=== PATIENT | female | born 1990 | race Two or more races ===

== ENCOUNTER 2021-04-04 16:30 | Outpatient (CLI) | payer SELFPAY | END 2021-04-04 17:58 | disposition home or self-care (01) | LOC: GENOP 16:30 | DX: O36.8130 Decreased fetal movements, third trimester, not applicable or unspecified (principal); O99.891 Other specified diseases and conditions complicating pregnancy; R10.9 Unspecified abdominal pain; Z91.048 Other nonmedicinal substance allergy status; Z3A.31 31 weeks gestation of pregnancy | CPT/HCPCS: 59025; 81001 ==

== ENCOUNTER 2021-05-22 10:28 | Outpatient (CLI) | payer SELFPAY | END 2021-05-22 11:48 | disposition home or self-care (01) | LOC: GENOP 10:28 | DX: O47.1 False labor at or after 37 completed weeks of gestation (principal); Z3A.39 39 weeks gestation of pregnancy; O99.213 Obesity complicating pregnancy, third trimester; E66.01 Morbid (severe) obesity due to excess calories | CPT/HCPCS: 81001; G0463 ==